=== PATIENT | male | born 1995 | race Caucasian/White ===

== ENCOUNTER 2019-01-25 07:18 | Emergency (ER) | payer SELFPAY ==
[2019-01-25] MEDS ORDERED: IBUPROFEN 600 MG TABLET PO ONE (07:52)
--- NOTE | 2019-01-25 08:15 | RADIOLOGY REPORT (SQ) ---
EXAM DESCRIPTION: KNEE RIGHT 4 VIEWS COMPLETED DATE/TIME: 01/25/2019 8:01 am REASON FOR STUDY: "twist pop" COMPARISON: None. NUMBER OF VIEWS: Four views. TECHNIQUE: AP, lateral, and both oblique radiographic images acquired of the right knee. LIMITATIONS: None. FINDINGS: MINERALIZATION: Normal. BONES: No acute fracture or dislocation. No worrisome bone lesions. JOINT: Mild joint effusion SOFT TISSUES: No soft tissue swelling. No radio-opaque foreign body. OTHER: No other significant finding. IMPRESSION: Mild joint effusion without evidence of acute bony abnormality. TECHNICAL DOCUMENTATION: JOB ID: [id number] [employer]- All Rights Reserved Reading location - IP/workstation name: [email or web address]
--- NOTE | 2019-01-25 08:23 | ER Document Report ---
ED General - General Chief Complaint: Knee Injury Stated Complaint: RIGHT KNEE INJURY Time Seen by Provider: 01/25/19 08:17 Primary Care Provider: HOLLI LEONARDO MD [ACTIVE STAFF] - Follow up as needed TRAVEL OUTSIDE OF THE [place] IN LAST 30 DAYS: No - HPI Notes: 23-year-old male to the emergency department with complaints of right knee injury since last night. He states that he was playing basketball with his little brother when he was going for a lay up and trying to avoid being hit by a little brother. States that he planted his right foot and twisted down onto it. States that he had immediate pain and then began to develop swelling. He states that when he walks on the knee he feels like it is unstable and will give out on him. He has not taken anything for the pain. He denies any other injuries. - Related Data Allergies/Adverse Reactions: No Known Allergies Allergy (Verified 01/25/19 07:26) Past Medical History - General Information source: Patient, Parent - Social History Smoking Status: Current Every Day Smoker Chew tobacco use (# tins/day): No Frequency of alcohol use: None Drug Abuse: None Family History: Reviewed & Not Pertinent Patient has suicidal ideation: No Patient has homicidal ideation: No Renal/ Medical History: Denies: Hx Peritoneal Dialysis Review of Systems - Review of Systems Constitutional: denies: Chills, Fever EENT: No symptoms reported Cardiovascular: denies: Chest pain, Syncope, Dizziness, Lightheaded Respiratory: denies: Cough, Short of breath Gastrointestinal: denies: Abdominal pain, Diarrhea, Nausea, Vomiting Genitourinary: No symptoms reported Musculoskeletal: See HPI - Right knee pain and right knee joint swelling, Joint pain, Joint swelling Skin: No symptoms reported Hematologic/Lymphatic: No symptoms reported Neurological/Psychological: No symptoms reported -: Yes All other systems reviewed and negative Physical Exam - Vital signs Vitals: Temp Pulse Resp BP Pulse Ox 98.4 F 92 16 122/57 L 98 01/25/19 07:34 01/25/19 07:34 01/25/19 07:34 01/25/19 07:34 01/25/19 07:34 Interpretation: Normal - General General appearance: Appears well In distress: None - HEENT Head: Normocephalic, Atraumatic Eyes: Normal Pupils: PERRL - Respiratory Respiratory status: No respiratory distress Chest status: Nontender Breath sounds: Normal Chest palpation: Normal - Cardiovascular Rhythm: Regular Heart sounds: Normal auscultation Murmur: No - Abdominal Inspection: Normal Distension: No distension Bowel sounds: Normal Tenderness: Nontender Organomegaly: No organomegaly - Back Back: Normal, Nontender - Extremities Knee: Tender - There is tenderness to palpation over the anterior joint line of the right knee with most pain medially. There is a medial joint effusion. There is no erythema, no warmth to the joint. There is negative valgus and varus stress testing. However there does appear to be some laxity with anterior drawer testing. Nontender to palpation over the right ankle and right hip. Patient has increased pain with right knee flexion. He has 5 out of 5 strength and dorsiflexion and plantar flexion against resistance. DP pulses are intact and equal. Capillary refill is less than 2 seconds throughout, Drawer's test instability, Joint effusion Course - Re-evaluation Re-evalutation: 01/25/19 Impression: Right knee injury most concerning for possible ligamentous injury given his positive anterior drawer testing. His injury is most consistent with a possible meniscal or ACL injury. Will place a knee immobilizer. Will place on crutches. Have asked him not to weight-bear. We will give him follow-up for orthopedist for further management and evaluation. Will write for pain medicines. Have encouraged him to ice the knee at least 3 times a day for 20 minutes at a time. He agrees with the plan. - Vital Signs Vital signs: Temp Pulse Resp BP Pulse Ox 98.8 F 73 16 125/73 100 01/25/19 08:50 01/25/19 08:50 01/25/19 08:50 01/25/19 08:50 01/25/19 08:50 - Diagnostic Test Radiology reviewed: Image reviewed, Reports reviewed Procedures - Immobilization Right Knee Pre-Proc Neuro Vasc Exam: Normal Immobilizer type: Knee immobilizer Performed by: RN Post-Proc Neuro Vasc Exam: Normal Alignment checked and good: Yes Discharge - Discharge Clinical Impression: Knee effusion, right Right knee injury Qualifiers: Encounter type: initial encounter Qualified Code(s): S89.91XA - Unspecified injury of right lower leg, initial encounter Disposition: HOME, SELF-CARE Instructions: Use of Crutches ([facility]), Suspected Internal Knee Injury ([facility]), Knee Immobilizing Splint ([facility]) Additional Instructions: NO WEIGHT BEARING. WEAR KNEE IMMOBILIZER, USE CRUTCHES. RETURN IF ANY WORSENING SYMPTOMS SUCH WORSENING KNEE PAIN, REDNESS TO KNEE, FEVERS, OR ANY OTHER CONCERNS. ICE THE KNEE AT LEAST THREE TIMES A DAY FOR 20 MINUTES AT A TIME. FOLLOW UP WITH THE ORTHOPEDIST WITHOUT FAIL. FAILURE TO FOLLOW UP COULD LEAD TO PERMANENT PAIN, DYSFUNCTION. Prescriptions: Tramadol HCl [Ultram 50 mg Tablet] 50 mg PO Q6H PRN #10 tab PRN Reason: Referrals: HOLLI LEONARDO MD [ACTIVE STAFF] - Follow up as needed DARIEN CIFUENTES MD [ACTIVE STAFF] - Follow up in 1 week
[2019-01-25 08:51] VITALS: BP 125/73
== END 2019-01-25 09:05 | disposition home or self-care (01) ==
LOC: ER 07:18
DX: S89.91XA Unspecified injury of right lower leg, initial encounter (principal); M25.461 Effusion, right knee; X50.1XXA Overexertion from prolonged static or awkward postures, initial encounter; Y93.67 Activity, basketball; Y92.008 Other place in unspecified non-institutional (private) residence as the place of occurrence of the external cause
CPT/HCPCS: 73564; L1830; 99283